=== PATIENT | male | born 1965 | race Caucasian/White ===

== ENCOUNTER 2017-04-25 15:30 | Emergency (ER) | payer MEDICAID, OTHER ==
[~2017-04-25] VITALS: Ht 162.6 cm; Wt 69.0 kg
[~2017-04-25 15:30] MED LIST: ONDA4TAB35 PO
[2017-04-25 15:38] VITALS: Ht 162.6 cm; Wt 69.0 kg
[2017-04-25] MEDS ORDERED: SOD CHLORIDE 0.9% 1,000 ML IV STA ×3 (16:06→16:40)
[2017-04-25 16:28] LABS: ADD SCAN DIFF NO
[2017-04-25] MEDS ORDERED: DIPHTH/TET/ACEL PERTUSS (ADULT) 0.5 ML VIAL IM* ONE (16:30)
[2017-04-25 16:31] LABS: BASOPHIL # 0.1 10^3/ul (0.0-0.1); EOSINOPHILS # 0.1 10^3/ul (0.0-0.5); EOSINOPHILS % 0.5 % (0.0-7.0); HEMATOCRIT 38.2 % (42.0-52.0); HEMOGLOBIN 12.8 g/dl (14.0-18.0); LYMPHOCYTES # 2.6 10^3/ul (0.8-2.9); LYMPHOCYTES % 25.7 % (15.0-51.0); MEAN CORPUSCULAR HGB CONC 33.5 g/dl (32.0-37.0); MEAN CORPUSCULAR VOLUME 92.5 fl (82.0-101.0); MEAN PLATELET VOLUME 10.4 fl (7.4-10.4); MONOCYTE # 1.2 10^3/ul (0.3-0.9); MONOCYTES % 11.9 % (0.0-11.0); NEUTROPHIL # 6.2 10^3/ul (1.6-7.5); NEUTROPHILS % 60.1 % (39.0-77.0); NUCLEATED RED BLOOD CELLS% 0.2 /100WBC (0.0-0.0); PLATELET COUNT 102 10^3/UL (140-415); RED BLOOD COUNT 4.13 10^6/ul (4.70-6.10); RED CELL DISTRIBUTION WIDTH 14.1 % (11.5-14.5); WHITE BLOOD COUNT 10.3 10^3/ul (4.8-10.8)
[2017-04-25 16:46] LABS: INR 0.95; PROTIME 12.7 Sec (12.2-14.2)
[2017-04-25 16:47] LABS: PARTIAL THROMBOPLASTIN TIME 27.4 Sec (25.0-35.0)
--- NOTE | 2017-04-25 16:50 | RADRPT ---
PROCEDURE: XR Chest. CLINICAL INDICATION: Chest pain. TECHNIQUE: Single frontal view. COMPARISON: 12/31/2012. FINDINGS: The lungs are clear. The heart size is normal. There is no pleural effusion. There is no pneumothorax. IMPRESSION: 1. Normal chest radiograph. 2. No change from 12/31/2012. RPTAT: QQ .Deshaun Moreno MD, MD Date Time Electronically viewed and signed by .Deshaun Moreno MD, MD on 04/25/2017 16:50 .R/
[2017-04-25 16:52] LABS: ALANINE AMINOTRANSFERASE 165 IU/L (13-69); ALBUMIN 5.2 g/dl (3.3-4.9); ALBUMIN/GLOBULIN RATIO 1.52; ALKALINE PHOSPHATASE 142 IU/L (42-121); ANION GAP 26 (8-16); ASPARTATE AMINO TRANSFERASE 677 IU/L (15-46); BILIRUBIN,INDIRECT 1.4 mg/dl (0-1.1); BILIRUBIN,TOTAL 2.1 mg/dl (0.2-1.3); BLOOD UREA NITROGEN 13 mg/dl (7-20); CARBON DIOXIDE 24 mmol/L (21-31); CHLORIDE 90 mmol/L (97-110); CREATININE 2.96 mg/dl (0.61-1.24); GLUCOSE 132 mg/dl (70-220); POTASSIUM 3.2 mmol/L (3.5-5.1); SODIUM 137 mmol/L (135-144); TOTAL PROTEIN 8.6 g/dl (6.1-8.1)
[2017-04-25 16:53] LABS: ACETAMINOPHEN < 10.0 ug/ml (10.0-30.0); SALICYLATE < 1.0 mg/dl (5.0-30.0)
[2017-04-25] MEDS ORDERED: POTASSIUM CHLORIDE (SR) 20 MEQ TAB PO STA (16:58)
[2017-04-25 17:03] LABS: TROPONIN-I 0.033 ng/ml (0.00-0.12)
--- NOTE | 2017-04-25 17:09 | RADRPT ---
PROCEDURE: CT Brain without. CLINICAL INDICATION: Trauma, pain. TECHNIQUE: A CT of the brain was performed on multidetector high-resolution CT scanner utilizing a xial sections from the skull base through the vertex without contrast. The scan was reviewed in sof t tissue brain and high frequency resolution bone algorithm windows. Images were reviewed on a high -resolution PACS workstation. One or more the following does reduction techniques were utilized: Aut omated exposure control, adjustment of the mA/ or kV according to patient's size, or use of iterativ e reconstruction technique. The exam CTDI = 43.38 mGy and the DLP = 630.2 mGy-cm. COMPARISON: Brain CT 12/29/2012. FINDINGS: The ventricles and sulci are mildly prominent indicative of volume loss. There is no intracranial he morrhage, mass effect or midline shift. No abnormal intra-axial or extra-axial fluid collections ar e seen. The garcia/white matter differentiation is preserved. There are minimal scattered foci of hypoattenuation in the white matter, which are nonspecific in et iology but likely reflect chronic small vessel ischemic changes. There are minimal intracranial vas cular calcifications consistent with atherosclerosis. The visualized paranasal sinuses are essential ly clear. Mild left frontal scalp swelling and hematoma are noted without underlying skull fracture. IMPRESSION: 1. No acute intracranial hemorrhage, transcortical infarction or mass effect. 2. Minimal intracranial atherosclerosis and chronic small vessel ischemic changes. 3. Mild generalized cerebral volume loss with interval progression. 4. Mild left frontal scalp swelling and hematoma without underlying skull fracture. RPTAT: HH .Woody Mcclain MD, MD Date Time Electronically viewed and signed by .Woody Mcclain MD, MD on 04/25/2017 17:08 .N/
--- NOTE | 2017-04-25 17:11 | RADRPT ---
PROCEDURE: CT scan facial bones CLINICAL INDICATION: Trauma. Facial injury. Pain. TECHNIQUE: CT scan of the face was performed on the a high-resolution multidetector CT scanner wit h multiple contiguous axial images obtained through the face. Coronal and sagittal reformatted imag es were obtained from the axial source images. One or more the following does reduction techniques w ere utilized: Automated exposure control, adjustment of the mA/ or kV according to patient's size, o r use of iterative reconstruction technique. Exam CTDI = 43.38 mGy and the DLP = 630.2 mGy-cm. COMPARISON: None available. FINDINGS: Acute minimally displaced fracture of bilateral nasal bones are noted with overlying soft tissue swe lling. Mild left frontal scalp swelling and hematoma without underlying skull fracture. The orbital globes are unremarkable. Nasal septum is intact. Paranasal sinuses demonstrate mild sca ttered mucosal thickening mainly in ethmoid air cells and maxillary sinuses. IMPRESSION: 1. Acute minimally displaced fracture of bilateral nasal bones with overlying soft tissue swelling. 2. Mild left frontal scalp swelling and hematoma without underlying skull fracture. 3. Mild scattered paranasal sinus disease. RPTAT: HH .Woody Mcclain MD, MD Date Time Electronically viewed and signed by .Woody Mcclain MD, MD on 04/25/2017 17:11 .N/
--- NOTE | 2017-04-25 17:30 | ERD ---
ER Documentation Chief Complaint Date/Time DATE: 04/25/17 TIME: 17:26 Chief Complaint sycope/seizures ? 2 weeks. alcoholic , last drink 2 hrs ago, nasal bruisi HPI This is a 51-year-old male who presents to the emergency room for evaluation of syncopal episode. The patient does that he drinks alcohol every day and says his last drink was 2 hours ago. She denies any homicidal suicidal ideation and came to the emergency room for evaluation of syncope. The patient is denying chest pain or palpitations or shortness of breath at this time. ROS All systems reviewed and are negative except as per history of present illness. Medications Home Meds Discontinued Scripts Ondansetron Hcl* (Zofran* ODT) 4 mg -ODT Tab.disper, 4 MG PO Q4H Y for NAUSEA AND OR VOMITING, #10 TAB Prov:SHANDA CATHERINE DO 11/09/15 Allergies Allergies: Coded Allergies: No Known Allergy (Unverified , 04/25/17) PMhx/Soc History of Surgery: Yes (LEFT NEPHRECTOMY IN 1990) Anesthesia Reaction: No Hx Neurological Disorder: No Hx Respiratory Disorders: No Hx Cardiac Disorders: Yes (HTN) Hx Psychiatric Problems: No Hx Miscellaneous Medical Probl: Yes (ETOH) Hx Alcohol Use: Yes (PT STATES DRANK BOTTLE OF VODKA TODAY) Hx Substance Use: No Hx Tobacco Use: Yes (2 CIGARETTES PER DAY) Smoking Status: Light tobacco smoker Physical Exam Vitals Vital Signs Date Time Temp Pulse Resp B/P Pulse Ox O2 Delivery O2 Flow Rate FiO2 04/25/17 16:20 98.8 155 20 108/74 100 Nasal Cannula 2.0 04/25/17 16:20 Nasal Cannula 2 04/25/17 15:38 98.2 164 18 102/52 98 Physical Exam INITIAL VITAL SIGNS: Reviewed by me GENERAL: The patient has a disheveled appearance HEENT: Extremely dry mucous membranes, superficial abrasion over bridge of nose , pupils equal, round, and reactive to light. EOMI. There is no scleral icterus. NECK: C-spine is soft and supple, there is no meningismus. There is no cervical lymphadenopathy. LUNGS: Clear to auscultation bilaterally. There are no rales, wheezes or rhonchi. HEART: Tachycardic, no murmurs, clicks, rubs or gallops. ABDOMEN: Soft, non-tender, non-distended. There are bowel sounds in all four quadrants. No rebound or guarding. EXTREMITIES: There is no peripheral cyanosis or edema. No focal swelling or erythema. NEUROLOGICAL: The patient moves all four extremities with 5/5 strength. Cranial nerves II - XII are intact. Normal gait. Alert and oriented SKIN: There is no apparent rash or petechiae. HEME/LYMPHATIC: There is no evidence of excessive bruising or lymphedema. PSYCHIATRIC: The patient does not appear anxious or depressed. Result Diagram: 04/25/17 1610 04/25/17 1610 Results 24 hrs Laboratory Tests Test 04/25/17 16:10 White Blood Count 10.310^3/ul Red Blood Count 4.1310^6/ul Hemoglobin 12.8g/dl Hematocrit 38.2% Mean Corpuscular Volume 92.5fl Mean Corpuscular Hemoglobin 31.0pg Mean Corpuscular Hemoglobin Concent 33.5g/dl Red Cell Distribution Width 14.1% Platelet Count 84943^3/UL Mean Platelet Volume 10.4fl Neutrophils % 60.1% Lymphocytes % 25.7% Monocytes % 11.9% Eosinophils % 0.5% Basophils % 1.0% Nucleated Red Blood Cells % 0.2/100WBC Neutrophils # 6.210^3/ul Lymphocytes # 2.610^3/ul Monocytes # 1.210^3/ul Eosinophils # 0.110^3/ul Basophils # 0.110^3/ul Nucleated Red Blood Cells # 0.010^3/ul Prothrombin Time 12.7Sec Prothrombin Time Ratio 1.0 INR International Normalized Ratio 0.95 Activated Partial Thromboplast Time 27.4Sec Sodium Level 137mmol/L Potassium Level 3.2mmol/L Chloride Level 90mmol/L Carbon Dioxide Level 24mmol/L Anion Gap 26 Blood Urea Nitrogen 13mg/dl Creatinine 2.96mg/dl Glucose Level 132mg/dl Calcium Level 9.0mg/dl Total Bilirubin 2.1mg/dl Direct Bilirubin 0.70mg/dl Indirect Bilirubin 1.4mg/dl Aspartate Amino Transf (AST/SGOT) 677IU/L Alanine Aminotransferase (ALT/SGPT) 165IU/L Alkaline Phosphatase 142IU/L Creatine Kinase 464IU/L Troponin I 0.033ng/ml Total Protein 8.6g/dl Albumin 5.2g/dl Globulin 3.40g/dl Albumin/Globulin Ratio 1.52 Salicylates Level < 1.0mg/dl Acetaminophen Level < 10.0ug/ml Ethyl Alcohol Level 197.0mg/dl Current Medications Medications (Trade) Dose Ordered Sig/Lazaro Route PRN Reason Start Time Stop Time Status Last Admin Dose Admin Sodium Chloride (NS) 1,000 ml @ 1,000 mls/hr Q1H STAT IV 04/25/17 16:06 04/25/17 17:05 DC 04/25/17 16:48 Diphtheria/ Tetanus/Acell Pertussis 0.5 ml 0.5 ml ONCE ONCE IM* 04/25/17 16:30 04/25/17 16:31 DC Sodium Chloride 1,000 ml @ 1,000 mls/hr Q1H STAT IV 04/25/17 16:10 04/25/17 17:09 DC 04/25/17 16:48 Sodium Chloride (NS) 1,000 ml @ 1,000 mls/hr Q1H STAT IV 04/25/17 16:40 04/25/17 17:39 04/25/17 16:49 Potassium Chloride (Klor-Con 20) 40 meq ONCE STAT PO 04/25/17 16:58 04/25/17 16:59 DC Procedures/MDM EKG: Rate/Rhythm: Sinus tachycardia QRS, ST, T-waves: [No changes consistent w/ acute ischemia] Impression: [No evidence of ischemia or arrhythmia] Chest X-ray 1V Interpreted by me: Soft Tissue: No acute abnormalities Bones: No acute abnormalities Mediastinum/Cardiac Silhouette/Lungs: [No acute abnormalities] CT brain without: 1. No acute intracranial hemorrhage, transcortical infarction or mass effect. 2. Minimal intracranial atherosclerosis and chronic small vessel ischemic changes. 3. Mild generalized cerebral volume loss with interval progression. 4. Mild left frontal scalp swelling and hematoma without underlying skull fracture. CT face without: 1. Acute minimally displaced fracture of bilateral nasal bones with overlying soft tissue swelling. 2. Mild left frontal scalp swelling and hematoma without underlying skull fracture. 3. Mild scattered paranasal sinus disease. This 16-year-old male presents to the ER for evaluation of syncope. When I evaluated this patient he was tachycardic with a heart rate in the 150s. He did appear to be severely dehydrated and had dry mucous membranes. The patient does state he drinks alcohol every day and states his last drink was 2 hours ago. I did obtain lab work on this patient given his tachycardia and laboratories show renal insufficiency, mild hypokalemia and prerenal azotemia. The patient was given 4 L of IV fluid here in the emergency room. The patient' s heart rate is now 102 bpm. The patient's blood pressure is 132/94 and oxygen level is 100%. CT of the head and face were obtained which show acute minimally displaced fractures of the bilateral nasal bones. Patient did have a tetanus shot here in the emergency room and will be discharged and he is clinically sober with instructions to discontinue the use of alcohol. Smoking Cessation Therapy: Pt. was lectured for greater than 3 minutes on the health risks of continued smoking and the benefits of cessation. Departure Diagnosis: Primary Impression: Syncope Additional Impressions: Moderate dehydration Renal insufficiency Transaminitis Tobacco abuse Tobacco abuse counseling Condition: Stable ALBER REECE DO Apr 25, 2017 17:30
[2017-04-25 18:20] VITALS: BP 151/95; PULSE 107; RESP 20; TEMP 98.1
== END 2017-04-25 18:45 | disposition home or self-care (01) ==
LOC: E/R 15:30
DX: R55 Syncope and collapse (principal); E86.0 Dehydration; N28.9 Disorder of kidney and ureter, unspecified; R74.0 Nonspecific elevation of levels of transaminase and lactic acid dehydrogenase [LDH]; F17.210 Nicotine dependence, cigarettes, uncomplicated; I10 Essential (primary) hypertension; Z23 Encounter for immunization; Z71.6 Tobacco abuse counseling
CPT/HCPCS: 36415; 70450; 70486; 71010; 80053; 80306; 82550; 84484; 85025; 85610; 85730; 90471; 90715; 93005; 96360; J7030; Z7502; Z7610

== ENCOUNTER 2019-03-24 10:03 | Emergency (ER) | payer MEDICAID ==
[~2019-03-24] VITALS: Ht 165.1 cm; Wt 66.5 kg
[2019-03-24 10:18] VITALS: Ht 165.1 cm; Wt 66.5 kg
[2019-03-24 13:30] VITALS: BP 153/89; PULSE 69; RESP 12
--- NOTE | 2019-03-24 13:42 | ERD ---
ER Documentation Chief Complaint Chief Complaint headache and left eye problem, poor historian HPI 53-year-old male who is an extremely poor historian despite the use of a educational sign language interpreter. The patient cannot clearly articulate why he is in the emergency room. After prolonged in-depth conversation it is possible the patient was recently admitted an outside hospital for possible falls and syncope and possible head injury. The patient cannot articulate where and when this was. He does have a history of alcohol abuse and has been here before. He does not appear to be intoxicated. Patient also states that he has not been able to see clearly out of his left eye for approximately 2 to 3 months. This is unchanged. He thinks the main reason he is in the emergency room today is because he was told that he needs to come get a primary care physician. Patient is describing a mild frontal headache that is gradual onset, throbbing, 1 out of 10. He denies any recent falls or injuries. ROS Limited as the patient is an extremely poor historian Medications Home Meds No Active Prescriptions or Reported Meds Allergies Allergies: Coded Allergies: No Known Allergy (Unverified , 03/24/19) PMhx/Soc History of Surgery: Yes (LEFT NEPHRECTOMY IN 1990) Anesthesia Reaction: No Hx Neurological Disorder: Yes (migraine) Hx Respiratory Disorders: No Hx Cardiac Disorders: Yes (HTN) Hx Psychiatric Problems: No Hx Miscellaneous Medical Probl: Yes (ETOH) Hx Alcohol Use: Yes (hx ETOH abuse) Hx Substance Use: No Hx Tobacco Use: Yes (2 CIGARETTES PER DAY) Smoking Status: Current every day smoker FmHx Family History: No diabetes Physical Exam Vitals Vital Signs Date Temp Pulse Resp B/P (MAP) Pulse Ox O2 O2 Flow FiO2 Time Delivery Rate 03/24/19 98.6 60 16 167/95 100 Room Air 10:45 (119) 03/24/19 98.6 72 18 148/90 99 10:18 (109) Physical Exam General: Disheveled, no acute distress Head: Normocephalic, atraumatic, No evidence of traumatic injury Eyes: Pupils equally reactive, EOM intact, cataract in a central location of the left cornea, pupils are reactive, no afferent pupillary defect ENT: Moist mucous membranes Neck: Supple, no lymphadenopathy Respiratory: Lungs clear bilaterally, no distress Cardiovascular: RRR, no murmurs, rubs, or gallops Abdominal: Soft, non-tender, non-distended, no peritoneal signs : Deferred MSK: No edema, no unilateral swelling, 5/5 strength Neurologic: Alert and oriented, moving all extremities, normal speech, no focal weakness, no cerebellar signs Skin: No rash Psych: Normal mood Procedures/MDM EKG, MONITORS, & DIAGNOSTIC IMAGING: CT brain IMPRESSION: 1. Interval nondisplaced right frontal parietal vertex fracture extending anteriorly into the right inferior frontal calvaria. 2. No acute intracranial hemorrhage or extra-axial fluid collection. 3. Moderate ventriculomegaly which is greater than sulcal prominence suggesting central greater than peripheral volume loss. A component of normal pressure hydrocephalus is not excluded. 4. Interval right inferior frontal and right upper encephalomalacia/gliosis which may be related to chronic contusions versus other etiologies. Further findings as detailed above. Critical findings were discussed with Yoav Kramer on 03/24/2019 at 12:06 PM. RPTAT: [facility] MEDICAL DECISION MAKING: The patient is an extremely poor historian. It is unclear exactly why he is here. I believe this is a social issue. His headache is mild. Given the fact that the patient does have an alcohol abuse history and cannot clearly articulate why he is here a CT of the brain was ordered. The CT shows evidence of a calvarial fracture. Based on what we can piece together based on the pat ient's history this appears to be subacute and likely related to patient's recent hospitalization at outside hospital. We do not have comparisons. I discussed the case with Dr. Teixeira, on-call neurosurgeon. He agrees that this is likely subacute and given a nonfocal neurologic exam with no underlying hematoma or hemorrhage the patient can be safely discharged and managed on an outpatient basis. The patient has been given local clinic referral information. The patient remains well-appearing and asymptomatic in the emergency room setting. He is a nonfocal neurologic exam and I believe can be safely discharged. CONSULTATION: None DISPOSITION PLAN: The patient does not have an identifiable emergent medical condition that warrants inpatient hospitalization at this time. The patient is deemed safe for discharge with outpatient follow-up. We discussed follow up with the patient's primary care doctor within 24 to 48 hours as needed. We also discussed return to the emergency room for worsening symptoms or worsening condition. Outpatient referral: Neurosurgery as needed Discharge Medications: None required Departure Diagnosis: Primary Impression: Calvarial fracture Encounter type: subsequent encounter Fracture type: closed Fracture healing: with routine healing Qualified Codes: S02.0XXD - Fracture of vault of skull, subsequent encounter for fracture with routine healing Condition: Stable Patient Instructions: Headache, Unspecified, HEAD INJURY, No Wake-Up (Adult) Referrals: [facility] Usted se diaz hecho un examen mdico de control que le indica que no est en destini condicin que requiera tratamiento urgente en el Departamento de Emergencia. Un estudio ms profundo y el tratamiento de dubon condicin pueden esperar sin ningn riesgo hasta que usted sea atendida/o en el consultorio de dubon mdico o destini clnica. Es responsabilidad suya arreglar destini dillon para el seguimiento del pan. MANEJO DE CONDICIONES NO URGENTES EN EL FUTURO 1) Si usted tiene un mdico de atencin primaria: Usted debera llamar a dubon mdico de atencin primaria antes de venir al departamento de emergencia. Despus de las horas de consultorio, dubon doctor o dubon asociado/a est disponible por telfono. El mdico o enfermero de antonio en el servicio telefnico puede asesorarle por taylor medio para atender el problema, o pan contrario se puede programar destini dillon. 2) Si usted no tiene un mdico de atencin primaria: Llame al mdico o clnica de referencia que aparece abajo masoud las horas de consultorio para hacer destini dillon para que le vean. CLINICAS: [facility] [phone] [facility] [phone] [facility] [phone] [facility] [phone] [facility] [phone] [address] [facility] [phone] [facility] () Al se diaz hecho un examen mdico de control que le indica que no est en destini condicin que requiera tratamiento urgente en el Departamento de Emergencia. Un estudio ms profundo y el tratamiento de dubon condicin pueden esperar sin ningn riesgo hasta que usted sea atendida/o en el consultorio de dubon mdico o destini clnica. Es responsabilidad suya arreglar destini dillon para el seguimiento del apn. MANEJO DE CONDICIONES NO URGENTES EN EL FUTURO 1) Si usted tiene un mdico de atencin primaria: Usted debera llamar a dubon mdico de atencin primaria antes de venir al departamento de emergencia. Despus de las horas de consultorio, dubon doctor o dubon asociado/a est disponible por telfono. El mdico o enfermero de antonio en el servicio telefnico puede asesorarle por taylor medio para atender el problema, o pan contrario se puede programar destini dillon. 2) Si usted no tiene un mdico de atencin primaria: Llame al mdico o condado institucions de referencia que aparece abajo masoud las horas de consultorio para hacer destini dillon para que le vean. SI USTED NO PUEDE PAGAR PARA NOLAN UN MEDICO puede ir a: [facility] [id number] [place] [address] [facility] [address] [place] [address] [facility] [address] [place] [address] PARA INDIGO [facility] [address] [place] [address] Additional Instructions: Llame al doctor nombrado abajo (Referral Sources) MAANA y nga destini DILLON PARA DENTRO DE DESTINI SEMANA. Dgale a la secretaria que nosotros le instruimos hacer esta dillon.Avise o llame si dubon condicin se empeora antes de la dillon. YOAV ESCOBEDO MD Mar 24, 2019 13:42
== END 2019-03-24 13:30 | disposition home or self-care (01) ==
LOC: E/R 10:03
DX: S02.0XXD Fracture of vault of skull, subsequent encounter for fracture with routine healing (principal); R40.2142 Coma scale, eyes open, spontaneous, at arrival to emergency department; R40.2362 Coma scale, best motor response, obeys commands, at arrival to emergency department; R40.2252 Coma scale, best verbal response, oriented, at arrival to emergency department; I10 Essential (primary) hypertension; F17.210 Nicotine dependence, cigarettes, uncomplicated; W18.39XD Other fall on same level, subsequent encounter; Y92.9 Unspecified place or not applicable
CPT/HCPCS: 70450; Z7502